=== PATIENT | female | born 1985 | race Hispanic/Latino ===

== ENCOUNTER 2024-12-16 23:34 | Emergency (ER) | payer OTHER ==
[2024-12-17] MEDS ORDERED: Ondansetron PF 4 MG/2 ML Vial ONE (00:01)
[2024-12-17] MEDS ORDERED: Ketorolac Tromethamine 30 MG (1 mL) VIAL ONE (00:01)
[2024-12-17 00:12] LABS: Glucose, Urine (Dipstick) Normal (Negative); Leukocyte Negative (Negative); Protein, Urine (Dipstick) Negative (Neg-Trace); Specific Gravity, Urine 1.015 (1.005-1.030)
[2024-12-17 00:15] LABS: #Basophils 0.09 10x3/uL (0.0-0.2); #Eosinophils 0.20 10x3/uL (0.0-0.5); #Monocytes 1.07 10x3/uL (0.0-1.1); #Neutrophils 9.65 10x3/uL (1.5-8.4); %Basophils 0.6 % (0.0-2.0); %Eosinophils 1.3 % (0.0-6.0); %Lymphocytes 30.0 % (18.0-47.0); %Monocytes 6.7 % (0.0-10.0); %Neutrophils 60.8 % (40.0-75.0); Hematocrit 41.8 % (34.9-44.5); Hemoglobin 14.6 g/dL (12.0-15.5); Mean Corpuscular Hemoglobin 28.3 pg (27.0-33.0); Mean Corpuscular Volume 81.2 fL (81.6-98.3); Platelet Count 406 10x3/uL (150-450); Pregnancy Test - Urine (BHCG) Negative (Negative); Pregu Control Background? CLEAR/WHITE (CLR/WHITE); Pregu Control Bar Appear? YES (CONTROL BAR); Red Blood Cell (RBC) Count 5.15 10x6/uL (3.90-5.03); White Blood Cell (WBC) Count 15.87 10x3/uL (3.5-10.5)
[2024-12-17 00:25] LABS: Bacteria/HPF None Seen HPF (None Seen); CAUTI Indications for Culture Pelvic or flank pain; RBC/HPF None Seen HPF (0-3); Urine Culture Reflex No No; WBC/HPF 0-3 HPF (0-3)
[2024-12-17 00:33] LABS: ALT (SGPT) 38 U/L (Less than 34); AST (SGOT) 30 U/L (11-34); Albumin 3.4 g/dL (3.1-4.5); Alkaline Phosphatase 52 U/L (40-110); Anion Gap 13 mmol/L (10-20); BUN (Urea Nitrogen) 8 mg/dL (7.0-18.7); Bilirubin, Total 0.4 mg/dL (0.3-1.2); Calc. Creatinine Clearance 0 mL/min (70-130); Calcium 8.2 mg/dL (7.8-10.44); Carbon Dioxide 23 mmol/L (22-29); Chloride 102 mmol/L (98-107); Globulin 2.5 g/dL (2.4-3.5); Glucose 87 mg/dL (70-105); Lipase 4 U/L (8-78); Potassium 3.8 mmol/L (3.5-5.1); Sodium 134 mmol/L (136-145)
== END 2024-12-17 01:44 | disposition home or self-care (01) ==
LOC: CSHERS 23:34
DX: R30.0 Dysuria (principal); I10 Essential (primary) hypertension; Z55.6 Problems related to health literacy; Z79.899 Other long term (current) drug therapy
CPT/HCPCS: 74176; 80053; 81001; 81025; 83605; 83690; 85025; 96374; 96375; J1885; J2405